=== PATIENT | female | born 1985 | race Caucasian/White ===

== ENCOUNTER 2021-08-10 19:01 | Emergency (ER) | payer OTHER ==
[~2021-08-10] VITALS: Ht 160 cm; Wt 63.5 kg
[2021-08-10 19:10] VITALS: BP_SYST 139
[2021-08-10] MEDS ORDERED: IBUP-1971 PO (20:00)
[2021-08-10] MEDS ORDERED: HYDR-3917 PO (20:00)
[2021-08-10 20:15] VITALS: BP_SYST 139
[2021-08-10] MEDS ORDERED: HYDROcodone/ACETAMIN 5-325 MG TAB (NORCO/ VICODIN) PO ONE (20:15)
== END 2021-08-10 20:15 | disposition home or self-care (01) ==
LOC: SED 19:01
DX: S93.402A Sprain of unspecified ligament of left ankle, initial encounter (principal); Z79.899 Other long term (current) drug therapy; X50.1XXA Overexertion from prolonged static or awkward postures, initial encounter; Y93.66 Activity, soccer; Y92.89 Other specified places as the place of occurrence of the external cause; Y99.8 Other external cause status
CPT/HCPCS: 99284